=== PATIENT | female | born 1960 | race Caucasian/White ===

== ENCOUNTER → 2020-02-24 17:11 | Outpatient (CLI) | payer BC, SELFPAY ==
--- NOTE | ~2020-02-24 | MM_ITS ---
EXAMINATION: MM screening kaden BI w anderson HISTORY: Screening mammogram TECHNIQUE: Craniocaudal and mediolateral oblique 3-D tomosynthesis images were obtained and synthetic 2-D images were generated. CAD analysis was submitted and interpreted. COMPARISON: 06/15/2018, 06/02/2017, 12/11/2015 bilateral digital screening mammogram examinations BREAST PARENCHYMAL COMPOSITION: There are scattered areas of fibroglandular density. FINDINGS: There is no evidence of suspicious mass, calcification, or architectural distortion to sugg est malignancy in either breast. There has been no suspicious interval change. IMPRESSION: 1. No mammographic evidence of malignancy. 2. Recommend routine screening mammography in one year. BI-RADS Category 1: Negative Reviewed, dictated and finalized at location A. K MANAGER
== END ==
PROVIDERS: PCP Family Medicine; Visit Provider Student in an Organized Health Care Education/Training Program
DX: Z12.31 Encounter for screening mammogram for malignant neoplasm of breast (principal)
CPT/HCPCS: 77063; 77067

== ENCOUNTER → 2021-07-01 15:21 | Outpatient (CLI) | payer BC, SELFPAY ==
--- NOTE | ~2021-07-01 | DEXA_ITS ---
Bone Density Report Name: THOMAS LOERA Age: 61 Sex: Female Ethnicity: White Date of : 1960 Indication: postmenopausal; screening for osteoporosis; parental hip fracture; Referring Provider: Thania Mcdaniels Study: Bone densitometry was performed. Exam Date: July 01, 2021 Accession number: [id number] Bone Density: Region BMD T-score Z-score Classification AP Spine (L1-L4) 0.977 -0.6 0.8 Normal Femoral Neck (Left) 0.726 -1.1 0.2 Osteopenia Total Hip (Left) 0.909 -0.3 0.7 Normal Femoral Neck (Right) 0.655 -1.7 -0.5 Osteopenia Total Hip (Right) 0.850 -0.8 0.2 Normal Total Hip Mean 0.880 -0.6 0.5 Normal World Health Organization criteria for BMD impression classify patients as: Normal (T-score at or above -1.0), Osteopenia (T-score between -1.0 and -2.5), or Osteoporosis (T-score at or below -2.5). 10-year Fracture Risk(1): Major Osteoporotic Fracture 17% Hip Fracture 0.9% Reported Risk Factors: [place] (), Neck BMD=0.655, BMI=28.4, parental fracture (1) FRAX(R) Version 3.08. Fracture probability calculated for an untreated patient. Fracture probability may be lower if the patient has received treatment. Previous Exams: Region Exam Age BMD T-score BMD Change BMD Change Date g/cm2 vs Baseline vs Previous AP Spine(L1-L4) 07/01/2021 61 0.977 -0.6 0.030 0.014 06/15/2018 58 0.963 -0.8 0.016 0.006 12/11/2015 55 0.957 -0.8 0.010 0.010 10/04/2013 53 0.947 -0.9 Total Hip(Left) 07/01/2021 61 0.909 -0.3 0.012 0.009 06/15/2018 58 0.900 -0.3 0.003 0.003 12/11/2015 55 0.898 -0.4 0.000 0.000 10/04/2013 53 0.897 -0.4 Total Hip(Right) 07/01/2021 61 0.850 -0.8 0.013 0.014 06/15/2018 58 0.835 -0.9 -0.002 0.002 12/11/2015 55 0.833 -0.9 -0.004 -0.004 10/04/2013 53 0.837 -0.9 *Denotes significance at 95% confidence level, LSC for AP Spine = 0.022 g/cm2, LSC for Total Hip = 0.027 g/cm2 Clinical Information Provided by Patient: Parent has had a hip fracture Has used the following medications: Vitamin D, Calcium, MTV Patient maximum height was 69.0 Menopause Age: 49 No regular weight bearing exercise Drinks caffeinated beverages Onset of menses at age 13 Number of children 3 Impression: The patient has
--- NOTE | ~2021-07-01 | MM_ITS ---
EXAMINATION: MM screening kaden BI w anderson HISTORY: Screening mammogram TECHNIQUE: Craniocaudal and mediolateral oblique 3-D tomosynthesis images were obtained and synthetic 2-D images were generated. CAD analysis was submitted and interpreted. COMPARISON: 02/24/2020, 06/15/2018, 06/02/2017 bilateral screening mammogram examinations BREAST PARENCHYMAL COMPOSITION: There are scattered areas of fibroglandular density. FINDINGS: There is no evidence of suspicious mass, calcification, or architectural distortion to sugg est malignancy in either breast. There has been no suspicious interval change. IMPRESSION: 1. No mammographic evidence of malignancy. 2. Recommend routine screening mammography in one year. BI-RADS Category 1: Negative Reviewed, dictated and finalized at location A.
== END ==
PROVIDERS: PCP Family Medicine; Visit Provider Student in an Organized Health Care Education/Training Program
DX: Z12.31 Encounter for screening mammogram for malignant neoplasm of breast (principal); M85.851 Other specified disorders of bone density and structure, right thigh; M85.852 Other specified disorders of bone density and structure, left thigh
CPT/HCPCS: 77063; 77067; 77080

== ENCOUNTER 2022-02-06 16:05 | Emergency (ER) | payer BC, SELFPAY ==
[2022-02-06 16:13] VITALS: BP 106/81; PULSE 112; RESP 16; TEMP 36.8; O2SAT 97
--- NOTE | 2022-02-06 16:24 | ED.ABDPAIN ---
HPI - Abdominal Pain General Chief Complaint: Abdominal Pain Stated Complaint: fever, stomach pain, diarrhea Time Seen by Provider: 02/06/22 16:26 Source: patient and RN notes reviewed Mode of arrival: ambulatory Limitations: no limitations History of Present Illness HPI narrative: 61-year-old female without significant medical history presented for complaints of lower abdominal pain, fever and diarrhea for over 1 week. States temp 101-103. Endorses decreased appetite. states after attempting to eat she has cramping and liquid stools at least 3-4 per day. She states symptoms have been worse this week. Last week she had lab work and stool test with PCP for these symptoms, pt has not received the results. Taking Tylenol and ibuprofen for pain. Denies vomiting, hematochezia, melena, chest pain, or shortness of breath. Endorses remote history of abdominal hernia surgery. Related Data Home Medications Medication Instructions Recorded Confirmed multivitamin,nm-[id number]-fwcleiuz 1 tablet PO DAILY 12/31/19 01/30/22 (Complete Multivitamin tablet) calcium carbonate 600 mg-vitamin cap PO 01/05/21 01/30/22 D3 12.5 mcg (500 unit) capsule (Calcium 600 with Vitamin D3) vit C,E,zinc,copper-obkfu4l 250 1 cap PO DAILY 01/05/21 01/30/22 mg-lutein 5 mg-zeaxanthin 1 mg capsule (50 Plus Adult [facility]) Allergies Allergy/AdvReac Type Severity Reaction Status Date / Time No Known Allergies Allergy Verified 01/30/22 08:55 Review of Systems Review of Systems: CONSTITUTIONAL: Denies body aches, fever, chills ENT: Denies rhinorrhea, congestion CARDIOVASCULAR: Denies chest pain, palpitations, or edema. RESPIRATORY: Denies cough or dyspnea. GASTROINTESTINAL: Endorses abdominal pain, nausea, Denies vomiting, diarrhea GENITOURINARY: Denies dysuria, hematuria, or CVA tenderness. SKIN: Denies rash, itching, or wounds. MUSCULOSKELETAL: Denies back pain, joint pain, or myalgia. NEUROLOGIC: Denies headache, numbness, tingling, or weakness. All systems reviewed & are unremarkable except as noted in HPI and below PMFSH Past Medical History Medical History Adult BMI 27.0-27.9 kg/sq m Adult BMI 33.0-33.9 kg/sq m History of vaginal delivery x 3 Overweight with body mass index (BMI) of 28 to 28.9 in adult Surgical History Surgical History History of endometrial ablation [place] teeth removed Family History Family History Father Patient's father is , Onset Age: 93 Hypertension Pneumonia Mother Wet senile macular degeneration Pneumonia Sibling Hypertension Hyperlipidemia Other Family history of type 2 diabetes mellitus Social History Social History Smoking status: Never smoker Second hand tobacco smoke exposure: No Smoking end date: 03/26/15 Alcohol intake: current Substance use: never Substance use type: does not use 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 Please see nursing chart for further information. There is no relevant family history pertinent to the presenting complaint Exam Narrative: GENERAL: ill-appearing, no acute distress. EYES: EOMI. Conjunctivae normal. ENT: Mucous membranes pink and moist. CHEST: Clear to auscultation. HEART: Regular rate and rhythm. No murmur appreciated. Normal peripheral pulses. ABDOMEN: abd soft, mild distension, RUQ and bilat lower quads tender to palpation; normal bowel sounds No guarding, rebound tenderness, asymmetry SKIN: Warm, dry, no rash. Capillary refill normal. Normal sk
== END 2022-02-06 16:51 | disposition short-term general hospital (02) ==
PROVIDERS: Emergency Provider Nurse Practitioner Family; PCP Family Medicine
DX: R10.31 Right lower quadrant pain (principal); R10.32 Left lower quadrant pain; R10.11 Right upper quadrant pain
CPT/HCPCS: 99212; G0463

== ENCOUNTER 2022-02-06 17:06 | Emergency (ER) | payer BC, SELFPAY ==
[2022-02-06] VITALS (14 sets, daily range): BP systolic 111–122; BP diastolic 61–77; PULSE 87–96; RESP 16–18; TEMP 36.1–36.7; O2SAT 95–100
--- NOTE | ~2022-02-06 | CT_ITS ---
EXAMINATION: CT abdomen pelvis w con INDICATION: Gastric abdominal pain TECHNIQUE: Computed tomographic images of the abdomen and pelvis were obtained after the administrati on of 100 cc of Omnipaque 350 intravenous contrast. The dose-length product (DLP) was 629.36 mGy-cm. Automated exposure control and iterative reconstruction technique were employed. COMPARISON: None available FINDINGS: Minimal dependent atelectasis is present in the lung bases. The heart size is normal. There is focal fatty infiltration of the liver near the ligamentum teres. The spleen, pancreas, and right adrenal gland are normal. There is a 10 mm mass of the left adrenal gland. The mildly dilated common bile duct measures up to 8 mm. The gallbladder is mildly distended. No pathologically enlarged abdomi nal or pelvic lymph nodes are identified. There is no free intraperitoneal gas or evidence of bowel o bstruction. There is diffuse wall thickening of the colon from the transverse colon to the sigmoid co [place]. There is severe lumbar spondylosis at L5-S1. IMPRESSION: 1. Diffuse wall thickening of the colon from the transverse colon through the sigmoid colon, consiste nt with colitis. 2. Mild gallbladder distention and enlargement of the common bile duct of unclear significance. Corre late with liver function tests. Reviewed, dictated and finalized at location F. HOUSE ATTENDANT IMPRESSION: 1. Diffuse wall thickening of the colon from the transverse colon through the s igmoid colon, consistent with colitis. 2. Mild gallbladder distention and enlargement of the common bile duct of uncle ar significance. Correlate with liver function tests.
[2022-02-06 19:02] LABS: Hematocrit 36.5 % (37.0-47.0); Hemoglobin 12.2 g/dL (12.0-15.0); Mean Corpuscular HGB Conc 33.4 g/dl (32-36); Mean Corpuscular Volume 86.7 fl (80-100); Mean Platelet Volume 9.5 fl (7.4-10.4); Platelet Count Result 520 k/mm3 (150-375); Red Blood Count 4.21 M/mm3 (4.2-5.4); Red Cell Distribution Width 13.8 % (11.5-14.5); White Blood Count 11.1 K/mm3 (4.5-10.0)
[2022-02-06 19:12] LABS: Alanine Aminotransferase 42 U/L (6-35); Albumin Level 3.3 g/dL (3.5-5.1); Alkaline Phosphatase 181 U/L (38-126); Anion Gap 13 mmol/L (8-16); Aspartate Amino Transferase 44 U/L (14-36); Bilirubin,Total 0.6 mg/dL (0.2-1.3); Blood Urea Nitrogen 13 mg/dL (7-17); Calcium 8.3 mg/dL (8.4-10.2); Carbon Dioxide 29 mmol/L (22-30); Chloride 91 mmol/L (98-107); Estimated CRCL calculation 66 ml/min; Estimated Glomerular Filt Rate > 60; Glucose 102 mg/dL (65-110); Lipase 43 U/L (23-300); Potassium 2.9 mmol/L (3.4-5.0); Sodium 133 mmol/L (137-145)
[2022-02-06 19:35] LABS: Total Cells Counted 100
[2022-02-06 19:36] LABS: Band Neutrophils Percent 15 % (0-6); Eosinophils Absolute Manual 0.22 K/mm3 (0.02-0.5); Eosinophils Percent Manual 2 % (0-4); Lymphocytes Absolute Manual 2.22 K/mm3 (1.1-4.5); Lymphocytes Percent Manual 20 % (18-44); Monocytes Absolute Manual 2.66 K/mm3 (0.1-0.90); Monocytes Percent Manual 24 % (3-9); Neutrophils Absolute Manual 5.99 K/mm3 (1.7-7.2); Neutrophils Percent Manual 39 % (46-73); Platelet Estimate Increased (Adequate)
[2022-02-06 19:37] LABS: Ovalocytes 1+ (NORMAL)
[2022-02-06 19:38] LABS: Atypical Lymphocytes Present; Schistocytes None Seen (NORMAL)
--- NOTE | 2022-02-06 20:13 | ED.ABDPAIN ---
HPI - Abdominal Pain General Chief Complaint: Abdominal Pain Stated Complaint: fever, abd pain x 1 week Time Seen by Provider: 02/06/22 19:38 History of Present Illness HPI narrative: This is a 61-year-old female who denies past medical history, presenting to the emergency department complaining of abdominal pain for the past week. She describes the pain as sharp and cramping, severe, associated with intermittent vomiting and nonbloody diarrhea, exacerbated by any type of food, approximately 1-2 hours after eating. She also complains of associated fevers and chills but denies chest pain, shortness of breath, cough or dysuria. Related Data Home Medications Medication Instructions Recorded Confirmed multivitamin,ot-xcnn-ugvmaegd 1 tablet PO DAILY 12/31/19 01/30/22 (Complete Multivitamin tablet) calcium carbonate 600 mg-vitamin cap PO 01/05/21 01/30/22 D3 12.5 mcg (500 unit) capsule (Calcium 600 with Vitamin D3) vit C,E,zinc,copper-tvuvs9d 250 1 cap PO DAILY 01/05/21 01/30/22 mg-lutein 5 mg-zeaxanthin 1 mg capsule (50 Plus Adult [facility]) Allergies Allergy/AdvReac Type Severity Reaction Status Date / Time No Known Allergies Allergy Verified 02/06/22 19:47 Review of Systems Review of Systems: CONSTITUTIONAL: fever, chills, Denies sweats. EYES: Denies visual changes, redness, or discharge. ENT: Denies rhinorrhea, congestion, sore throat, or otalgia. CARDIOVASCULAR: Denies chest pain, palpitations, or edema. RESPIRATORY: Denies cough or dyspnea. GASTROINTESTINAL: Abdominal pain, nausea, vomiting, and diarrhea. GENITOURINARY: Denies dysuria or hematuria. SKIN: Denies rash or itching. MUSCULOSKELETAL: Denies back pain, joint pain, or myalgia. NEUROLOGIC: Denies headache, numbness, dizziness, or weakness. PSYCHIATRIC: Denies anxiety or depression. [facility] Past Medical History Medical History (Updated 02/07/22 @ 00:00 by Background Daemon) Adult BMI 27.0-27.9 kg/sq m Adult BMI 33.0-33.9 kg/sq m History of vaginal delivery x 3 Overweight with body mass index (BMI) of 28 to 28.9 in adult Surgical History Surgical History (Updated 02/06/22 @ 20:15 by Vicente Hansen MD) History of endometrial ablation History of hernia repair [place] teeth removed Family History Family History Father Patient's father is , Onset Age: 93 Hypertension Pneumonia Mother Wet senile macular degeneration Pneumonia Sibling Hypertension Hyperlipidemia Other Family history of type 2 diabetes mellitus Social History Social History Smoking status: Never smoker Second hand tobacco smoke exposure: No Smoking end date: 03/26/15 Alcohol intake: current Substance use: never Substance use type: does not use 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 HEAD: Normocephalic, atraumatic. EYES: PERRLA and EOMI. ENT: Nares clear, no rhinorrhea or epistaxis. Mucous membranes moist. Oropharynx without tonsillar hypertrophy exudate or other lesions. NECK: Supple. No adenopathy or masses. No carotid bruits or JVD CHEST: Clear to auscultation. No respiratory distress. No wheezes rales or rhonchi HEART: Regular rate and rhythm. No murmur heard. Normal peripheral pulses. ABDOMEN: Soft, tender palpation in the left upper, epigastric and right upper quadrants without rebound, mildly distended, normal active bowel sounds. No CVA tenderness to palpation bilaterally EXTREMITIES: Normal range of motion. No edema. SKIN: Warm, dry, no rash. NEURO: No focal deficits. Alert and oriented x3. PSYCH: Normal mood and affect. Course Course Emergency Course: 23:33 - White blood cell count 11.1. Patient demonstrates
[2022-02-06] MEDS: SODIUM CHLORIDE 0.9% IV 1,000 ML 999 ML IV CONT (20:40)
[2022-02-06] MEDS: KCL 20 MEQ/SW 100 ML 100 ML 50 MEQ IVPB (20:40)
[2022-02-06] MEDS: MORPHINE SULFATE (*CRX) 4 MG/ML INJ 6 MG IV PUSH (20:41)
[2022-02-06] MEDS: PROCHLORPERAZINE EDISYLATE 10 MG/2 ML VIAL IV PUSH (20:41)
[2022-02-06 20:46] LABS: Magnesium 2.5 mg/dL (1.6-2.3)
[2022-02-06 22:47] LABS: Appearance Urine Clear (Clear); Bilirubin Urine 1+ (Negative); Blood Urine Trace-intact (Negative); Color Urine Yellow (Yellow); Glucose Urine UA Negative (Negative); Ketones Urine 2+ mg/dL (Negative); Leukocyte Esterase Ur Negative LEU/UL (Negative); Nitrate Urine Negative (Negative); Protein Urine 1+ mg/dL (Negative); Specific Grav Ur <= 1.005 (1.001-1.035); Urobilinogen Urine 0.2 mg/dL (<2.0); pH Urine 5.5 (5.0-9.0)
[2022-02-06 23:06] LABS: Add Urine Microscopic? YES; Mucus Urine Rare /lpf; Squamous Epithelial Cell Urine Few /hpf (Few)
[2022-02-06] MEDS: SULFAMETHOXAZOLE/TRIMETHOPRIM 800/160 MG DS TABLET 1 TAB PO (23:48)
[2022-02-07 00:20] VITALS: BP 129/71; PULSE 90; RESP 18; O2SAT 96
== END 2022-02-07 00:21 | disposition home or self-care (01) ==
PROVIDERS: Emergency Medicine; Emergency Provider Preventive Medicine Aerospace Medicine; PCP Family Medicine
DX: A09 Infectious gastroenteritis and colitis, unspecified (principal); E66.3 Overweight; Z68.26 Body mass index [BMI] 26.0-26.9, adult; Z87.891 Personal history of nicotine dependence
CPT/HCPCS: 36415; 74177; 80053; 81001; 83690; 83735; 85025; 96365; 96366; 96375; 99284; A9270; J0780; J2270; J3480; J7030; Q9967

== ENCOUNTER 2022-02-13 00:51 | Day surgery (SDC) | payer BC, SELFPAY ==
[2022-02-10 11:24] VITALS: BMI 26.7
[2022-02-13 14:09] VITALS: BP 116/63; PULSE 91; RESP 16; TEMP 36.4; O2SAT 98
[2022-02-13] MEDS: LACTATED RINGERS 1,000 ML 150 ML IV CONT (14:12)
--- NOTE | 2022-02-13 14:36 | P.PNAN_ITS ---
Anes - Initial Pre Proc Eval Procedure: Operation Date: 02/13/22 15:00 Proposed Procedures p Colonoscopy - Vinny Nolen MD Date/Time: 02/13/22 14:36 Surgeon: Vinny Nolen MD Pre Op Diagnosis: diarrhea Patient Data Age: 61 Gender: F Height: 1.73 m Weight: 75.6 kg Last Vital Signs Temp 97.6 F 02/13/22 14:09 Pulse 91 02/13/22 14:09 Resp 16 02/13/22 14:09 BP 116/63 02/13/22 14:09 Pulse Ox 98 02/13/22 14:09 O2 Del Method Room Air 02/13/22 14:09 Allergies Allergy/AdvReac Type Severity Reaction Status Date / Time No Known Allergies Allergy Verified 02/13/22 14:07 Home Medications Medication Instructions Recorded Confirmed Type ondansetron 4 mg disintegrating 4 mg PO Q8H PRN nausea and 02/07/22 02/13/22 Rx tablet vomiting #10 tabs acetaminophen 500 mg capsule 1,000 mg PO Q8H PRN Pain 02/10/22 02/13/22 History Patient hx anesthesia problems: none Family hx anesthesia problems: none Results Review: All pre-operative results and documents have been reviewed as part of the pre- operative evaluation. [facility] Past Medical History Medical History (Updated 02/08/22 @ 00:00 by Caroline Merritt) Adult BMI 27.0-27.9 kg/sq m Adult BMI 33.0-33.9 kg/sq m History of vaginal delivery x 3 Overweight with body mass index (BMI) of 28 to 28.9 in adult Surgical History Surgical History (Updated 02/06/22 @ 20:15 by Vicente Hansen MD) History of endometrial ablation History of hernia repair [place] teeth removed Family History Family History Father Patient's father is , Onset Age: 93 Hypertension Pneumonia Mother Wet senile macular degeneration Pneumonia Sibling Hypertension Hyperlipidemia Other Family history of type 2 diabetes mellitus Social History Social History Smoking status: Former smoker Tobacco type: cigarettes Second hand tobacco smoke exposure: No Smoking end date: 03/26/15 Alcohol intake: former Alcohol use details: socially Substance use: never Substance use type: does not use Living arrangements: with family 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[employer] Gender identity (if verbalized by the patient): Female Spiritual care concerns: No Anes - Eval Final PreProcedure Day of Procedure 02/13/22 14:36 Patient weight: normal Heart: regular rate and rhythm Lungs: clear to auscultation Airway: Mallampati scale class II Neurological: alert and oriented Last oral intake: >/= 8 hours ASA classification: II Emergent: no Anesthetic plan: proceed Anesthesia type and monitoring: general GIVS and standard monitoring Results Review: All pre-operative results and documents have been reviewed as part of the pre- operative evaluation. Informed Consent: The patient's anesthetic plan and its attendant risks and benefits were discussed with the patient/family/POA. Questions were solicited and answers provided to the satisfaction of the patient/family/POA.
--- NOTE | 2022-02-13 14:44 | PM.HPGS ---
History of Present Illness History of Present Illness Consent: Risks, benefits, and alternatives have been discussed and questions answered. Patient agrees to proceed with procedure. Chief complaint: diarrhea Narrative: Celeste Marin is a 61 year old female who began having diarrhea with lower abdominal pain About 10 days ago. She went to the emergency room where CT scan showed diffuse wall thickening of the colon from the transverse colon through the sigmoid colon, consistent with colitis. Review of Systems Review of Systems: All systems reviewed & are unremarkable except as noted in HPI and below PMFSH Past Medical History Medical History Adult BMI 27.0-27.9 kg/sq m Adult BMI 33.0-33.9 kg/sq m History of vaginal delivery x 3 Overweight with body mass index (BMI) of 28 to 28.9 in adult Surgical History Surgical History History of endometrial ablation History of hernia repair [place] teeth removed Family History Family History Father Patient's father is , Onset Age: 93 Hypertension Pneumonia Mother Wet senile macular degeneration Pneumonia Sibling Hypertension Hyperlipidemia Other Family history of type 2 diabetes mellitus Social History Social History Smoking status: Former smoker Tobacco type: cigarettes Second hand tobacco smoke exposure: No Smoking end date: 03/26/15 Alcohol intake: former Alcohol use details: socially Substance use: never Substance use type: does not use Living arrangements: with family 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[employer] Gender identity (if verbalized by the patient): Female Spiritual care concerns: No Meds Home Medications and Allergies Home Medications Medication Instructions Recorded Confirmed Type ondansetron 4 mg disintegrating 4 mg PO Q8H PRN nausea and 02/07/22 02/13/22 Rx tablet vomiting #10 tabs acetaminophen 500 mg capsule 1,000 mg PO Q8H PRN Pain 02/10/22 02/13/22 History Allergies Allergy/AdvReac Type Severity Reaction Status Date / Time No Known Allergies Allergy Verified 02/13/22 14:07 Vital Signs Vital Signs - 24 hr 02/13/22 14:09 Temperature 36.4 C Pulse Rate 91 Respiratory Rate 16 Blood Pressure 116/63 Pulse Oximetry 98 Oxygen Delivery Room Air Exam Resp: Auscultation: clear to auscultation bilaterally Cardio: Rate: regular rate Rhythm: regular rhythm GI: GI Palp: Yes Soft to palpation and No Tenderness to palpation present (GI) Assessment and Plan Assessment and plan (1) Diarrhea: Qualifiers: Diarrhea type: unspecified type Qualified Code(s): R19.7 - Diarrhea, unspecified Code(s): R19.7 - Diarrhea, unspecified Status: Acute Assessment and Plan: Colonoscopy with possible biopsy or polypectomy or cautery or injection of substances.
[2022-02-13 15:39] VITALS: BP 107/68; PULSE 62; RESP 23; O2SAT 98
[2022-02-13 15:49] VITALS: BP 122/79; PULSE 83; RESP 19; O2SAT 95
[2022-02-13 15:59] VITALS: BP 116/69; PULSE 66; RESP 20; O2SAT 100
== END 2022-02-13 16:12 | disposition home or self-care (01) ==
PROVIDERS: PCP Family Medicine; Visit Provider Internal Medicine Gastroenterology
PROC: 0DJD8ZZ Inspection of Lower Intestinal Tract, Via Natural or Artificial Opening Endoscopic (ICD-10-PCS; CPT 45378; principal; 2022-02-13 15:00)
DX: K51.90 Ulcerative colitis, unspecified, without complications (principal); Z87.891 Personal history of nicotine dependence
CPT/HCPCS: 45380; 88305; J2001; J7120

== ENCOUNTER → 2022-03-15 12:24 | Outpatient (CLI) | payer BC, SELFPAY ==
--- NOTE | ~2022-03-15 | XR_ITS ---
XR chest 2V DATE: 03/15/2022 12:52 INDICATION: Shortness of breath TECHNIQUE: 2 views COMPARISON: None FINDINGS: There are patchy bibasilar infiltrates and/atelectasis. Normal heart size. Mild aortic unfolding. No hilar or mediastinal enlargement is evident. Slight blun ting of the left costophrenic angle may indicate minimal left pleural effusion. No pneumothorax. There is levoscoliosis of the thoracic spine. There is osteopenia. IMPRESSION: Patchy bibasilar infiltrates and/atelectasis and possible minimal left pleural effusion Reviewed, dictated and finalized at location B. NICAL EXPERT IMPRESSION: Patchy bibasilar infiltrates and/atelectasis and possible minimal l eft pleural effusion
== END ==
PROVIDERS: PCP Family Medicine; Visit Provider Physician Assistant Medical
DX: R06.02 Shortness of breath (principal); R05.3 Chronic cough; R91.8 Other nonspecific abnormal finding of lung field
CPT/HCPCS: 71046

== ENCOUNTER → 2022-04-10 09:41 | Outpatient (CLI) | payer BC, SELFPAY ==
--- NOTE | ~2022-04-10 | XR_ITS ---
XR chest 2V 04/10/2022 09:53 Indication: Atelectasis. Procedure: PA and lateral views of the chest Comparison: 03/15/2022 Findings: There is improving bibasilar airspace disease. Heart size normal. No edema, pleural effusio n or pneumothorax. Impression: 1: Improving bibasilar airspace disease, consistent with resolving pneumonia. Reviewed, dictated and finalized at location A. CAL MECHANIC APPRENTICE Impression: 1: Improving bibasilar airspace disease, consistent with resolving pneumonia.
== END ==
PROVIDERS: PCP Family Medicine; Visit Provider Physician Assistant Medical
DX: J98.11 Atelectasis (principal)
CPT/HCPCS: 71046

== ENCOUNTER 2023-02-23 02:10 | Day surgery (SDC) | payer OTHER, SELFPAY ==
[2023-02-07 10:57] VITALS: BMI 28.1
--- NOTE | 2023-02-21 09:19 | SUR.PREOP ---
Patient called regarding upcoming procedure. Reviewed preop instructions, appointment times, and procedure prep.
--- NOTE | 2023-02-22 13:58 | PM.HPGS ---
History of Present Illness History of Present Illness Consent: Risks, benefits, and alternatives have been discussed and questions answered. Patient agrees to proceed with procedure. Chief complaint: ulcerative colitis w/o complications Narrative: Celeste Marin is a 62 year old female here for follow-up of her ulcerative colitis.This was diagnosed about 1 year ago when she developed severe acute diarrhea and had not responded to antibiotics.? Subsequent colonoscopy did reveal severe colitis involving all the colon except for the ascending colon. Review of Systems Review of Systems: All systems reviewed & are unremarkable except as noted in HPI and below PMFSH Past Medical History Medical History Adult BMI 25.0-25.9 kg/sq m Adult BMI 27.0-27.9 kg/sq m Adult BMI 33.0-33.9 kg/sq m BMI 26.0-26.9,adult History of vaginal delivery x 3 Overweight with body mass index (BMI) of 28 to 28.9 in adult Surgical History Surgical History History of endometrial ablation History of hernia repair [place] teeth removed Family History Family History Father Patient's father is , Onset Age: 93 Hypertension Pneumonia Mother Wet senile macular degeneration Pneumonia Sibling Hypertension Hyperlipidemia Other Family history of type 2 diabetes mellitus Social History Social History Smoking packs per day: 0.5 Smoking cigarettes per day: 10.0 Years smoked: 4.5 Smoking pack-years: 2.25 Smoking status: Former smoker Tobacco type: cigarettes Second hand tobacco smoke exposure: No Smoking end date: 03/26/15 Alcohol intake: current Alcohol use details: rare social occasions Substance use: never Substance use type: does not use Living arrangements: with family Occupation/Education: occupation 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[employer] Gender identity (if verbalized by the patient): Female Spiritual care concerns: No Meds Home Medications and Allergies Home Medications Medication Instructions Recorded Confirmed Type adalimumab 40 mg/0.8 mL 40 mg (0.8 mL) subcut Q14D #2 ea 11/07/23 12/01/23 Rx subcutaneous pen kit (Humira Pen) calcium carbonate 600 mg calcium 600 mg PO DAILY 02/07/23 02/07/23 History (1,500 mg) tablet multivitamin with minerals-folic 1 tablet PO DAILY 02/07/23 02/07/23 History acid 0.4 mg tablet Allergies Allergy/AdvReac Type Severity Reaction Status Date / Time No Known Allergies Allergy Verified 02/07/23 11:05 Exam Const: General: alert Orientation/consciousness: patient oriented x3 Resp: Auscultation: clear to auscultation bilaterally Cardio: Rhythm: regular rhythm GI: GI Palp: Yes Soft to palpation and No Tenderness to palpation present (GI) Neuro: General: patient oriented x3 Assessment and Plan Assessment and plan (1) Ulcerative colitis: Code(s): K51.90 - Ulcerative colitis, unspecified, without complications Status: Acute Assessment and Plan: Colonoscopy with possible biopsy or polypectomy or cautery or injection of substances. (2) Iron deficiency anemia: Code(s): D50.9 - Iron deficiency anemia, unspecified Status: Acute
[2023-02-23 08:27] VITALS: BP 130/77; PULSE 68; RESP 20; TEMP 36.1; O2SAT 98; BMI 28.7
[2023-02-23] MEDS: LACTATED RINGERS 1,000 ML 150 ML IV CONT (08:37)
--- NOTE | 2023-02-23 08:53 | WPDANESEPPF ---
Anes - Initial Pre Proc Eval Procedure: Operation Date: 02/23/23 09:30 Proposed Procedures p Colonoscopy - Vinny Nolen MD Date/Time: 02/23/23 08:53 Surgeon: Vinny Nolen MD Pre Op Diagnosis: ulcerative colitis w/o complications Patient Data Age: 62 Gender: F Height: 1.73 m Weight: 85.7 kg Last Vital Signs Temp 96.9 F L 02/23/23 08:27 Pulse 68 02/23/23 08:27 Resp 20 02/23/23 08:27 BP 130/77 02/23/23 08:27 Pulse Ox 98 02/23/23 08:27 O2 Del Method Room Air 02/23/23 08:27 Allergies Allergy/AdvReac Type Severity Reaction Status Date / Time No Known Allergies Allergy Verified 02/07/23 11:05 Home Medications Medication Instructions Recorded Confirmed Type adalimumab 40 mg/0.8 mL 40 mg (0.8 mL) subcut Q14D #2 ea 01/30/23 02/23/23 Rx subcutaneous pen kit (Humira Pen) calcium carbonate 600 mg calcium 600 mg PO DAILY 02/07/23 02/07/23 History (1,500 mg) tablet multivitamin with minerals-folic 1 tablet PO DAILY 02/07/23 02/07/23 History acid 0.4 mg tablet Patient hx anesthesia problems: none Family hx anesthesia problems: none Results Review: All pre-operative results and documents have been reviewed as part of the pre-operative evaluation. [facility] Past Medical History Medical History Adult BMI 25.0-25.9 kg/sq m Adult BMI 27.0-27.9 kg/sq m Adult BMI 33.0-33.9 kg/sq m BMI 26.0-26.9,adult History of vaginal delivery x 3 Overweight with body mass index (BMI) of 28 to 28.9 in adult Surgical History Surgical History History of endometrial ablation History of hernia repair [place] teeth removed Family History Family History Father Patient's father is , Onset Age: 93 Hypertension Pneumonia Mother Wet senile macular degeneration Pneumonia Sibling Hypertension Hyperlipidemia Other Family history of type 2 diabetes mellitus Social History Social History Smoking packs per day: 0.5 Smoking cigarettes per day: 10.0 Years smoked: 4.5 Smoking pack-years: 2.25 Smoking status: Former smoker Tobacco type: cigarettes Second hand tobacco smoke exposure: No Smoking end date: 03/26/15 Alcohol intake: current Alcohol use details: rare social occasions Substance use: never Substance use type: does not use Living arrangements: with family Occupation/Education: occupation 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 Informed Consent: The patient's anesthetic plan and its attendant risks and benefits were discussed with the patient/family/POA. Questions were solicited and answers provided to the satisfaction of the patient/family/POA.
[2023-02-23 09:30] VITALS: BP 103/64; PULSE 63; RESP 16; O2SAT 98
[2023-02-23 09:40] VITALS: BP 118/68; PULSE 57; RESP 16; O2SAT 99
[2023-02-23 09:50] VITALS: BP 132/74; PULSE 56; RESP 12; O2SAT 99
== END 2023-02-23 09:54 | disposition home or self-care (01) ==
PROVIDERS: PCP Family Medicine; Visit Provider Internal Medicine Gastroenterology
PROC: 0DJD8ZZ Inspection of Lower Intestinal Tract, Via Natural or Artificial Opening Endoscopic (ICD-10-PCS; CPT 45378; principal; 2023-02-23 09:30)
DX: K51.90 Ulcerative colitis, unspecified, without complications (principal); K63.89 Other specified diseases of intestine; Z79.85 Long-term (current) use of injectable non-insulin antidiabetic drugs; Z87.891 Personal history of nicotine dependence
CPT/HCPCS: 45380; 88305; J2704; J7120

== ENCOUNTER 2023-07-02 14:58 | Outpatient (CLI) | payer OTHER, SELFPAY ==
--- NOTE | ~2023-07-02 | MM_ITS ---
EXAMINATION: MM screening kaden BI w anderson HISTORY: Screening mammogram TECHNIQUE: Craniocaudal and mediolateral oblique 3-D tomosynthesis images were obtained and synthetic 2-D images were generated. CAD analysis was submitted and interpreted. COMPARISON: July 01, 2021, February 24, 2020 bilateral screening mammogram examinations BREAST PARENCHYMAL COMPOSITION: There are scattered areas of fibroglandular density. FINDINGS: There is no evidence of suspicious mass, calcification, or architectural distortion to sugg est malignancy in either breast. There has been no suspicious interval change. IMPRESSION: 1. No mammographic evidence of malignancy. 2. Recommend routine screening mammography in one year. BI-RADS Category 1: Negative Reviewed, dictated and finalized at location B.
== END 2023-07-02 14:59 ==
PROVIDERS: PCP Family Medicine; Visit Provider Obstetrics & Gynecology
DX: Z12.31 Encounter for screening mammogram for malignant neoplasm of breast (principal)
CPT/HCPCS: 77063; 77067

== ENCOUNTER 2023-12-06 08:28 | Emergency (ER) | payer OTHER, SELFPAY ==
[2023-12-06 08:39] VITALS: BP 131/96; PULSE 80; RESP 16; TEMP 36.2; O2SAT 99
--- NOTE | 2023-12-06 08:44 | ED.URI ---
HPI - URI/Sore Throat General Chief Complaint: Upper Respiratory Infection Stated Complaint: COUGH Time Seen by Provider: 12/06/23 08:47 Source: patient, RN notes reviewed and old records reviewed Mode of arrival: ambulatory Limitations: no limitations History of Present Illness HPI Narrative: 63-year-old female who presents to [facility] with complaints of persistent cough since . Patient reports she initially had some sore throat continues to have no energy denies any present fevers or chills or any sweats. Patient has been taking Sudafed and Mucinex for her symptoms without resolution. She did state she had traveled from [place] where she attended a prior to becoming ill. Patient admits she has not been resting well due to cough. Patient reports some rib pain due to cough MD elicited complaint: cough, rhinorrhea, nasal congestion and other ( fatigue) Onset (ago): day(s) (10) Description of mucous: clear Able to tolerate fluids by mouth: Yes Treatments prior to arrival: other ( Sudafed and Mucinex) Related Data Home Medications Medication Instructions Recorded Confirmed calcium carbonate 600 mg PO DAILY 02/07/23 12/06/23 multivitamin with minerals-folic 1 tablet PO DAILY 02/07/23 12/06/23 acid 0.4 mg tablet vitamins A,C,Q-[id number] 4,296 1 cap PO BID 02/28/23 12/06/23 mcg-226 mg-90 mg capsule (PreserVision AREDS) Allergies Allergy/AdvReac Type Severity Reaction Status Date / Time No Known Allergies Allergy Verified 09/06/23 08:35 Review of Systems Review of Systems: CONSTITUTIONAL: Denies malaise, chills, sweats, or fever. EYES: Denies visual changes, redness, or discharge. ENT: Reports rhinorrhea, congestion, sinus pain, no otalgia and no present sore throat. CARDIOVASCULAR: Denies chest pain, palpitations, or edema. RESPIRATORY: Reports cough.? Denies dyspnea. GASTROINTESTINAL: Denies abdominal pain, nausea, vomiting, diarrhea SKIN: Denies rash or itching. MUSCULOSKELETAL: Denies myalgia. NEUROLOGIC: Denies headache. All systems reviewed & are unremarkable except as noted in HPI and below PMFSH Past Medical History Medical History Adult BMI 25.0-25.9 kg/sq m Adult BMI 27.0-27.9 kg/sq m Adult BMI 33.0-33.9 kg/sq m BMI 26.0-26.9,adult History of vaginal delivery x 3 Overweight with body mass index (BMI) of 28 to 28.9 in adult Surgical History Surgical History History of endometrial ablation History of hernia repair [place] teeth removed Family History Family History Father Patient's father is , Onset Age: 93 Hypertension Pneumonia Mother Wet senile macular degeneration Pneumonia Sibling Hypertension Hyperlipidemia Other Family history of type 2 diabetes mellitus Social History Social History Smoking packs per day: 0.5 Smoking cigarettes per day: 10.0 Years smoked: 4.5 Smoking pack-years: 2.25 Smoking status: Former smoker Tobacco type: cigarettes Second hand tobacco smoke exposure: No Smoking end date: 03/26/15 Alcohol intake: current Alcohol use details: rare social occasions Substance use: never Substance use type: does not use Living arrangements: with family Occupation/Education: occupation 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 There is no relevant family history pertinent to the presenting complaint Exam Narrative: GENERAL: Well-appearing, well-nourished, and in no acute distress. HEAD: Normocephalic EYES: PERRLA, conjunctivae
== END 2023-12-06 09:02 | disposition home or self-care (01) ==
PROVIDERS: Emergency Provider Registered Nurse; PCP Family Medicine
DX: J40 Bronchitis, not specified as acute or chronic (principal); Z87.891 Personal history of nicotine dependence
CPT/HCPCS: 99213; G0463